=== PATIENT | female | born 1980 | race Caucasian/White ===

== ENCOUNTER 2017-11-08 13:46 | Emergency (ER) | payer OTHER ==
[2017-11-08] MEDS ORDERED: SODIUM CHLORIDE 0.9% 1,000 ML IV ONE (14:15)
[2017-11-08] MEDS ORDERED: ONDANSETRON 4 MG/2 ML VIAL IVP STA (14:15)
--- NOTE | 2017-11-08 14:18 | ED Physician Documentation ---
PD HPI NVD - Stated complaint Stated Complaint: VOMITING/DIARE/SWEATING - Chief complaint Chief Complaint: Abd Pain - History obtained from History obtained from: Patient - History of Present Illness Timing - onset: Enter time (0600), Today Timing - duration: Hours Timing - details: Abrupt onset, Still present Associated symptoms: Abdominal pain, Dizzy, Near syncope / syncope, Loss of appetite Contributing factors: No: Sick contact, Bad food Improved by: Laying still Worsened by: Moving, Breathing, Position, Palpation Similar symptoms before: Has not had sx before Recently seen: Clinic (routine visit several weeks ago.) - Additonal information Additional information: 37-year-old female awoke this morning with diarrhea and vomiting as well as epigastric abdominal pain. She has had persistence of her symptoms and feels quite ill. She states this is different than what she has had previously with migraine headache. Review of Systems Constitutional: reports: Chills. denies: Fever Eyes: denies: Decreased vision Ears: denies: Ear pain Nose: reports: Congestion Throat: reports: Sore throat Cardiac: denies: Chest pain / pressure, Palpitations Respiratory: reports: Cough. denies: Dyspnea GI: reports: Nausea, Vomiting, Diarrhea : denies: Dysuria, Frequency PD PAST MEDICAL HISTORY - Past Medical History Cardiovascular: Hypertension Psych: Depression Musculoskeletal: Chronic back pain - Past Surgical History Past Surgical History: No - Present Medications Home Medications: Ambulatory Orders Medication Instructions Recorded Confirmed Escitalopram Oxalate [Lexapro] 20 mg PO DAILY 03/30/14 07/28/14 Lisinopril 5 mg PO DAILY 03/30/14 07/28/14 Hydrocodone/Acetaminophen 1 each PO 11/08/17 [Hydrocodone-Acetamin 5-325 mg] Methocarbamol [Robaxin-750] 1,500 mg PO 11/08/17 Ondansetron [Zuplenz] 8 mg PO 11/08/17 Promethazine [Phenergan] 25 - 50 mg PO Q6H PRN #10 tab 11/08/17 buPROPion [Wellbutrin Sr] mg PO BID 11/08/17 - Allergies Allergies/Adverse Reactions: Allergies Allergy/AdvReac Type Severity Reaction Status Date / Time No Known Drug Allergies Allergy Verified 11/08/17 13:52 - Social History Does the pt smoke?: Yes Smoking Status: Current every day smoker Does the pt drink ETOH?: Yes Does the pt have substance abuse?: No - POLST Patient has POLST: No PD ED PE NORMAL - Vitals Vital signs reviewed: Yes (hypertensive ) - General General: Alert and oriented X 3, Well developed/nourished, Other (appears to be in pain ) - HEENT HEENT: Atraumatic, PERRL, EOMI, Other (right TM is inflamed the left is clear the pharynx is with swelling and erythema more to the right than the left. ) - Neck Neck: Supple, no meningeal sign, No bony TTP - Cardiac Cardiac: RRR, No murmur - Respiratory Respiratory: No respiratory distress, Clear bilaterally - Abdomen Abdomen: Soft, Other (epigastric tenderness is mild tenderness is referred from GB with palpation. ) - Back Back: No CVA TTP, No spinal TTP - Derm Derm: Normal color, Warm and dry, No rash - Extremities Extremities: No deformity - Neuro Neuro: No motor deficit, No sensory deficit Eye Opening: Spontaneous Motor: Obeys Commands Verbal: Oriented GCS Score: 15 - Psych Psych: Normal mood, Other (affect is flat) Results - Vitals Vitals: Vital Signs - 24 hr 11/08/17 11/08/17 11/08/17 13:49 14:53 15:25 Temperature 36.8 C Heart Rate 86 87 80 Respiratory 22 20 18 Rate Blood Pressure 149/114 H 147/96 H 138/82 H O2 Saturation 98 100 100 Oxygen O2 Source Room air - Labs Labs: Laboratory Tests 11/08/17 11/08/17 11/08/17 14:19 14:19 14:19 WBC 14.2 H RBC 5.31 Hgb 16.1 H Hct 46.9 MCV 88.5 MCH 30.4 MCHC 34.4 RDW 12.6 Plt Count 425 MPV 6.5 L Neut # 12.3 H Lymph # 1.3 L [place] # 0.4 Eos # 0.0 Baso # 0.1 Absolute Nucleated RBC 0.01 Nucleated RBC % 0.0 Sodium 137 Potassium 3.6 Chloride 101 Carbon Dioxide 22 Anion Gap 14.0 H BUN 14 Creatinine 0.9 Estimated GFR (MDRD) 71 L Glucose 139 H Calcium 10.0 Total Bilirubin 0.9 AST 27 ALT 18 Alkaline Phosphatase 65 Troponin I < 0.04 Total Protein 8.8 H Albumin 4.8 Globulin 4.0 Albumin/Globulin Ratio 1.2 Lipase 24 Urine Color Urine Clarity Urine pH Ur Specific [place] Urine Protein Urine Glucose (UA) Urine Ketones Urine Occult Blood Urine Nitrite Urine Bilirubin Urine Urobilinogen Ur Leukocyte Esterase Urine RBC Urine WBC Ur Squamous Epith Cells Urine Bacteria Urine Casts Ur Microscopic Review Urine Culture Comments Urine HCG, Qual 11/08/17 14:19 WBC RBC Hgb Hct MCV MCH MCHC RDW Plt Count MPV Neut # Lymph # [place] # Eos # Baso # Absolute Nucleated RBC Nucleated RBC % Sodium Potassium Chloride Carbon Dioxide Anion Gap BUN Creatinine Estimated GFR (MDRD) Glucose Calcium Total Bilirubin AST ALT Alkaline Phosphatase Troponin I Total Protein Albumin Globulin Albumin/Globulin Ratio Lipase Urine Color YELLOW Urine Clarity CLEAR Urine pH 8.5 H Ur Specific [place] 1.015 Urine Protein 100 H Urine Glucose (UA) NEGATIVE Urine Ketones 15 H Urine Occult Blood TRACE-INTA Urine Nitrite NEGATIVE Urine Bilirubin NEGATIVE Urine Urobilinogen 0.2 (NORMAL) Ur Leukocyte Esterase NEGATIVE Urine RBC 0-5 Urine WBC 0-3 Ur Squamous Epith Cells RARE Squamous Urine Bacteria None Seen Urine Casts 0-2 Hyaline Casts Ur Microscopic Review INDICATED Urine Culture Comments NOT INDICATED Urine HCG, Qual NEGATIVE Procedures - Bedside sono Bedside sono by EMP: With use of bedside ultrasound the gallbladder is imaged it is without obvious stone the gallbladder wall is not thickened and there is no port pericholecystic fluid. It is sonographically tender and has referred pain to the epigastrium. PD MEDICAL DECISION MAKING - ED course Complexity details: reviewed old records, reviewed results, re-evaluated patient , considered differential, d/w patient, d/w family ED course: 37 y/o female with acute vomiting and diarrhea this morning is in pain with epigastric pain worse with inspiration. She is found to be dehydrated and hydration is begun with saline and she is administered IV zofran without much relief. She does not get relief of the pain with a GI cocktail. She does get relief of nausea and pain with fentanyl and phenergan. Departure - Departure Disposition: 01 Home, Self Care Clinical Impression: Dehydration, Gastroenteritis Condition: Stable Instructions: ED Dehydration, ED Gastroenteritis Non Infec Follow-Up: Beckie Walker PA [Primary Care Provider] - Prescriptions: Promethazine [Phenergan] 25 - 50 mg PO Q6H PRN #10 tab PRN Reason: Nausea / Vomiting
[2017-11-08 14:34] LABS: BASOPHILS # (AUTO) 0.1 10^3/uL (0.0-0.1); BASOPHILS % (AUTO) 0.6 %; EOSINOPHILS % (AUTO) 0.2 %; HGB - HEMOGLOBIN 16.1 g/dL (12.0-16.0); LYMPHOCYTES # (AUTO) 1.3 10^3/uL (1.5-3.5); LYMPHOCYTES % (AUTO) 9.4 %; MEAN CORPUSCULAR HEMOGLOBIN 30.4 pg (27.0-31.0); MEAN CORPUSCULAR HGB CONC 34.4 g/dL (32.0-36.0); MEAN CORPUSCULAR VOLUME 88.5 fL (81.0-99.0); MEAN PLATELET VOLUME 6.5 fL (7.9-10.8); MONOCYTES # (AUTO) 0.4 10^3/uL (0.0-1.0); MONOCYTES % (AUTO) 3.1 %; NEUTROPHILS # (AUTO) 12.3 10^3/uL (1.5-6.6); NEUTROPHILS % (AUTO) 86.7 %; PLT - PLATELET COUNT 425 10^3/uL (130-450); RED BLOOD COUNT 5.31 10^6/uL (4.20-5.40); RED CELL DISTRIBUTION WIDTH 12.6 % (12.0-15.0); WHITE BLOOD COUNT 14.2 x10^3/uL (4.8-10.8)
[2017-11-08] MEDS ORDERED: LIDOCAINE VISCOUS 2% 15 ML UDC MM STA (14:42)
[2017-11-08] MEDS ORDERED: MAG HYDROX/AL HYDROX/SIMETH 30 ML UDC PO STA (14:42)
[2017-11-08 14:45] LABS: BILIRUBIN,URINE NEGATIVE (NEGATIVE); GLUCOSE, URINE (UA) NEGATIVE (NEGATIVE); KETONES,URINE (UA) 15 mg/dL (NEGATIVE); LEUKOCYTE ESTERASE, URINE NEGATIVE (NEGATIVE); NITRITE,URINE NEGATIVE (NEGATIVE); OCCULT BLOOD,URINE TRACE-INTA (NEGATIVE); PH,URINE 8.5 PH (5.0-7.5); PROTEIN,URINE 100 mg/dL (NEGATIVE); UROBILINOGEN,URINE 0.2 (NORMAL) E.U./dL (NORMAL)
[2017-11-08 14:46] LABS: ALBUMIN 4.8 g/dL (3.2-5.5); ALBUMIN/GLOBULIN RATIO 1.2 (1.0-2.2); BILIRUBIN,TOTAL 0.9 mg/dL (0.2-1.0); CREATININE 0.9 mg/dL (0.4-1.0); TOTAL PROTEIN 8.8 g/dL (6.7-8.2)
[2017-11-08 14:47] LABS: CLARITY,URINE CLEAR (CLEAR); HCG UR QUAL NEGATIVE
[2017-11-08] MEDS ORDERED: fentaNYL 100 MCG/2 ML VIAL IVP STA (14:54)
[2017-11-08] MEDS ORDERED: PROMETHAZINE INJ 25 MG in SODIUM CHLORIDE 0.9% 50 ML IV STA (14:54)
[2017-11-08 15:00] LABS: BACTERIA,URINE None Seen /HPF (None Seen); CASTS, URINE 0-2 Hyaline Casts /LPF; RBC,URINE 0-5 /HPF (0-5); SQUAMOUS EPITHELIAL CELL,UR RARE Squamous (<= Few)
[2017-11-08 15:35] VITALS: BP 151/103
== END 2017-11-08 16:59 | disposition home or self-care (01) ==
LOC: ED 13:46
DX: E86.0 Dehydration (principal); K52.9 Noninfective gastroenteritis and colitis, unspecified; I10 Essential (primary) hypertension; F17.200 Nicotine dependence, unspecified, uncomplicated
CPT/HCPCS: 36415; 80053; 81001; 81025; 83690; 84484; 85025; 96374; 96375; 99283; 99284; A9270; J7040; 81003; 87086

== ENCOUNTER 2017-11-10 10:28 | Emergency (ER) | payer OTHER ==
[2017-11-10] MEDS ORDERED: ONDANSETRON ODT 4 MG TABLET TL STA (11:00)
[2017-11-10 11:12] LABS: BASOPHILS # (AUTO) 0.1 10^3/uL (0.0-0.1); BASOPHILS % (AUTO) 0.6 %; EOSINOPHILS % (AUTO) 0.1 %; HGB - HEMOGLOBIN 16.3 g/dL (12.0-16.0); LYMPHOCYTES # (AUTO) 2.2 10^3/uL (1.5-3.5); MEAN CORPUSCULAR HEMOGLOBIN 30.7 pg (27.0-31.0); MEAN CORPUSCULAR HGB CONC 34.5 g/dL (32.0-36.0); MEAN CORPUSCULAR VOLUME 89.1 fL (81.0-99.0); MEAN PLATELET VOLUME 6.2 fL (7.9-10.8); MONOCYTES # (AUTO) 0.5 10^3/uL (0.0-1.0); MONOCYTES % (AUTO) 3.7 %; NEUTROPHILS % (AUTO) 80.6 %; PLT - PLATELET COUNT 443 10^3/uL (130-450); RED BLOOD COUNT 5.32 10^6/uL (4.20-5.40); WHITE BLOOD COUNT 14.9 x10^3/uL (4.8-10.8)
[2017-11-10 11:24] LABS: ALBUMIN/GLOBULIN RATIO 1.4 (1.0-2.2); BILIRUBIN,TOTAL 1.3 mg/dL (0.2-1.0); CALCIUM 9.6 mg/dL (8.5-10.3); CREATININE 0.9 mg/dL (0.4-1.0); TOTAL PROTEIN 8.6 g/dL (6.7-8.2)
--- NOTE | 2017-11-10 12:16 | ED Physician Documentation ---
PD HPI ABD PAIN - Stated complaint Stated Complaint: ABD PX,VOMITTING - Chief complaint Chief Complaint: Abd Pain - History obtained from History obtained from: Patient - History of Present Illness Timing - onset: How many days ago (several) Timing - duration: Days (several) Timing - details: Abrupt onset (initially with nausea, vomiting and some diarrhea. Not diarrhea still, but upper stomach still hurting with nausea/ vomiting despite meds Phenergan.) Quality: Cramping, Aching, Pain Location: Epigastric Radiation: Chest, Upper back. No: Lower back Improved by: No: Eating, Vomiting Worsened by: Eating, Breathing, Palpation Associated symptoms: Nausea, Vomiting, Diarrhea. No: Fever, Hematemesis, Constipation, Melena, Dysuria, Near syncope / syncope Similar symptoms before: Has not had sx before Recently seen: Emergency Dept (2 days ago with presume GE with normal bedside US and labs showing just elevated WBC. Rx Phenergan.) Review of Systems Constitutional: denies: Fever, Chills Nose: denies: Rhinorrhea / runny nose, Congestion Throat: denies: Sore throat Cardiac: reports: Chest pain / pressure (pain goes to lower sternal area). denies: Palpitations Respiratory: denies: Dyspnea, Cough GI: reports: Abdominal Pain, Nausea, Vomiting, Diarrhea. denies: Abdominal Swelling : denies: Dysuria, Frequency Neurologic: reports: Generalized weakness. denies: Focal weakness, Numbness, Near syncope, Altered mental status PD PAST MEDICAL HISTORY - Past Medical History Cardiovascular: Hypertension Psych: Depression Musculoskeletal: Chronic back pain - Past Surgical History Past Surgical History: No - Present Medications Home Medications: Ambulatory Orders Medication Instructions Recorded Confirmed Escitalopram Oxalate [Lexapro] 20 mg PO DAILY 03/30/14 07/28/14 Lisinopril 5 mg PO DAILY 03/30/14 07/28/14 Hydrocodone/Acetaminophen 1 each PO 11/08/17 [Hydrocodone-Acetamin 5-325 mg] Methocarbamol [Robaxin-750] 1,500 mg PO 11/08/17 Ondansetron [Zuplenz] 8 mg PO 11/08/17 Promethazine [Phenergan] 25 - 50 mg PO Q6H PRN #10 tab 11/08/17 buPROPion [Wellbutrin Sr] mg PO BID 11/08/17 Famotidine [Pepcid] 20 mg PO ONCE #30 tablet 11/10/17 HYDROcod/ACETAM 5/325 [[place] 5/325] 1 tab PO Q6H PRN #15 tablet 11/10/17 Lidocaine Viscous 2% [Xylocaine 5 ml PO Q4H PRN #1 bottle 11/10/17 Viscous 2%] Ondansetron Odt [Zofran] 4 mg TL Q6H PRN #15 tablet 11/10/17 - Allergies Allergies/Adverse Reactions: Allergies Allergy/AdvReac Type Severity Reaction Status Date / Time No Known Drug Allergies Allergy Verified 11/10/17 10:56 - Social History Does the pt smoke?: Yes Smoking Status: Current every day smoker Does the pt drink ETOH?: Yes Does the pt have substance abuse?: No - POLST Patient has POLST: No PD ED PE NORMAL - Vitals Vital signs reviewed: Yes - General General: Alert and oriented X 3, Well developed/nourished, Other (appears uncomfortable) - HEENT HEENT: Ears normal, Pharynx benign - Neck Neck: Supple, no meningeal sign, No adenopathy - Cardiac Cardiac: RRR, No murmur - Respiratory Respiratory: Clear bilaterally - Abdomen Abdomen: Soft, Non distended, No organomegaly, Other (tender epigastric to RUQ with guarding) - Female Female : Deferred - Rectal Rectal: Deferred - Back Back: No CVA TTP - Derm Derm: Normal color, Warm and dry - Extremities Extremities: No tenderness to palpate, Normal ROM s pain, No edema, No calf tenderness / cord - Neuro Neuro: Alert and oriented X 3, No motor deficit, Normal speech Results - Vitals Vitals: Vital Signs - 24 hr 11/10/17 11/10/17 11/10/17 10:51 14:11 15:42 Temperature 35.9 C L 37.7 C H 36.9 C Heart Rate 80 92 77 Respiratory 15 18 18 Rate Blood Pressure 159/101 H 157/107 H 143/74 H O2 Saturation 98 98 98 Oxygen O2 Source Room air - Labs Labs: Laboratory Tests 11/10/17 11/10/17 11/10/17 11:03 11:03 12:00 WBC 14.9 H RBC 5.32 Hgb 16.3 H Hct 47.4 H MCV 89.1 MCH 30.7 MCHC 34.5 RDW 13.0 Plt Count 443 MPV 6.2 L Neut # 12.0 H Lymph # 2.2 [place] # 0.5 Eos # 0.0 Baso # 0.1 Absolute Nucleated RBC 0.00 Nucleated RBC % 0.0 Sodium 136 Potassium 3.4 L Chloride 99 L Carbon Dioxide 24 Anion Gap 13.0 BUN 16 Creatinine 0.9 Estimated GFR (MDRD) 71 L Glucose 135 H Calcium 9.6 Total Bilirubin 1.3 H AST 27 ALT 21 Alkaline Phosphatase 58 Total Protein 8.6 H Albumin 5.0 Globulin 3.6 Albumin/Globulin Ratio 1.4 Lipase 25 Urine Color DARK YELLOW Urine Clarity CLEAR Urine pH 5.5 Ur Specific [place] >=1.030 H Urine Protein >=300 H Urine Glucose (UA) NEGATIVE Urine Ketones 40 H Urine Occult Blood MODERATE H Urine Nitrite NEGATIVE Urine Bilirubin NEGATIVE Urine Urobilinogen 1 (NORMAL) Ur Leukocyte Esterase NEGATIVE Urine RBC 6-10 H Urine WBC 0-3 Ur Squamous Epith Cells FEW Squamous Amorphous Sediment Few Urine Bacteria Moderate H Urine Mucus Moderate Strands Ur Microscopic Review INDICATED Urine Culture Comments INDICATED Urine HCG, Qual 11/10/17 12:15 WBC RBC Hgb Hct MCV MCH MCHC RDW Plt Count MPV Neut # Lymph # [place] # Eos # Baso # Absolute Nucleated RBC Nucleated RBC % Sodium Potassium Chloride Carbon Dioxide Anion Gap BUN Creatinine Estimated GFR (MDRD) Glucose Calcium Total Bilirubin AST ALT Alkaline Phosphatase Total Protein Albumin Globulin Albumin/Globulin Ratio Lipase Urine Color Urine Clarity Urine pH Ur Specific [place] >=1.030 H Urine Protein Urine Glucose (UA) Urine Ketones Urine Occult Blood Urine Nitrite Urine Bilirubin Urine Urobilinogen Ur Leukocyte Esterase Urine RBC Urine WBC Ur Squamous Epith Cells Amorphous Sediment Urine Bacteria Urine Mucus Ur Microscopic Review Urine Culture Comments Urine HCG, Qual NEGATIVE - Rads (name of study) RUQ US Radiology: Prelim report reviewed (fatty liver; no acute process) PD MEDICAL DECISION MAKING - ED course Complexity details: reviewed results (still good labs regarding liver/pancreas. WBC elevated still at 14K. RUQ US formal study is good. Shared decision to not do CT scan as presume gastric. ), considered differential, d/w patient Departure - Departure Disposition: 01 Home, Self Care Clinical Impression: Abdominal pain Qualifiers: Abdominal location: epigastric Qualified Code(s): R10.13 - Epigastric pain Vomiting Qualifiers: Vomiting type: unspecified Vomiting Intractability: non-intractable Nausea presence: with nausea Qualified Code(s): R11.2 - Nausea with vomiting, unspecified Gastritis Qualifiers: Gastritis type: unspecified gastritis Chronicity: acute Gastritis bleeding: without bleeding Qualified Code(s): K29.00 - Acute gastritis without bleeding Condition: Stable Record reviewed to determine appropriate education?: Yes Instructions: ED Gastritis Follow-Up: Beckie Walker PA [Primary Care Provider] - Prescriptions: Famotidine [Pepcid] 20 mg PO ONCE #30 tablet HYDROcod/ACETAM 5/325 [[place] 5/325] 1 tab PO Q6H PRN #15 tablet PRN Reason: Pain Lidocaine Viscous 2% [Xylocaine Viscous 2%] 5 ml PO Q4H PRN #1 bottle PRN Reason: Pain Ondansetron Odt [Zofran] 4 mg TL Q6H PRN #15 tablet PRN Reason: Nausea / Vomiting Comments: Small frequent fluids. Ondansetron dissolving tablet if needed for nausea. He can use promethazine previously prescribed as well for nausea. Tylenol or hydrocodone if needed for pain. He can use antacids such as Mylanta or Maalox along with some lidocaine if needed for stomach pain. 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 Recheck if not improving over the next 2 or 3 days. Discharge Date/Time: 11/10/17 16:12
[2017-11-10 12:29] LABS: GLUCOSE, URINE (UA) NEGATIVE (NEGATIVE); KETONES,URINE (UA) 40 mg/dL (NEGATIVE); LEUKOCYTE ESTERASE, URINE NEGATIVE (NEGATIVE); NITRITE,URINE NEGATIVE (NEGATIVE); OCCULT BLOOD,URINE MODERATE (NEGATIVE); PH,URINE 5.5 PH (5.0-7.5); PROTEIN,URINE >=300 mg/dL (NEGATIVE); UROBILINOGEN,URINE 1 (NORMAL) E.U./dL (NORMAL)
[2017-11-10] MEDS ORDERED: SODIUM CHLORIDE 0.9% 1,000 ML IV ONE ×2 (12:34→12:35)
[2017-11-10] MEDS ORDERED: MAG HYDROX/AL HYDROX/SIMETH 30 ML UDC PO STA (12:34)
[2017-11-10] MEDS ORDERED: LIDOCAINE VISCOUS 2% 15 ML UDC MM STA (12:34)
[2017-11-10] MEDS ORDERED: ONDANSETRON 4 MG/2 ML VIAL IVP STA (12:34)
[2017-11-10] MEDS ORDERED: MORPHINE 10 MG/ML VIAL IVP STA ×2 (12:34→13:10)
[2017-11-10] MEDS ORDERED: FAMOTIDINE 20 MG/50 ML 50 ML IV ONE (12:34)
[2017-11-10 12:35] LABS: BILIRUBIN,URINE NEGATIVE (NEGATIVE); CLARITY,URINE CLEAR (CLEAR); ICTOTEST,URINE NEGATIVE
[2017-11-10 12:36] LABS: HCG UR QUAL NEGATIVE
[2017-11-10 12:47] LABS: AMORPHOUS SEDIMENT,UR Few /LPF; BACTERIA,URINE Moderate /HPF (None Seen); MUCUS,URINE Moderate Strands; SQUAMOUS EPITHELIAL CELL,UR FEW Squamous (<= Few)
[2017-11-10] MEDS ORDERED: METOCLOPRAMIDE 10 MG/2 ML VIAL IVP STA (13:09)
[2017-11-10] MEDS ORDERED: ACETAMINOPHEN 1,000 MG/100 ML 100 ML IV STA (13:10)
--- NOTE | 2017-11-10 14:16 | Ultrasound Report ---
RIGHT UPPER QUADRANT ULTRASOUND: 11/10/2017 CLINICAL INDICATION: Pain. TECHNIQUE: Real-time scanning was performed with claims customer service representative static images obtained. FINDINGS: The liver measures 16.2 cm. Hepatic echogenicity is increased, compatible with fatty infiltration. No focal parenchymal lesion or intrahepatic biliary dilatation is present. The common bile duct measures 3 mm. The gallbladder is normal. The right kidney measures 12.7 cm, and demonstrates no hydronephrosis. No free fluid is present. IMPRESSION: FATTY INFILTRATION OF THE LIVER. NO EVIDENCE OF CHOLELITHIASIS OR BILIARY OBSTRUCTION. TD: 11/10/2017 13:51
[2017-11-10 15:42] VITALS: BP 143/74
== END 2017-11-10 16:12 | disposition home or self-care (01) ==
LOC: ED 10:28
DX: K29.00 Acute gastritis without bleeding (principal); R10.13 Epigastric pain; R11.2 Nausea with vomiting, unspecified; I10 Essential (primary) hypertension; F17.200 Nicotine dependence, unspecified, uncomplicated
CPT/HCPCS: 36415; 76705; 80053; 81001; 81025; 83690; 85025; 87086; 93005; 96361; 96365; 96366; 96368; 96375; 96376; 99283; A9270; J0131; J2765; Q0162; 81003

== ENCOUNTER 2019-09-20 15:22 | Emergency (ER) | payer OTHER ==
--- NOTE | 2019-09-20 15:31 | ED Physician Documentation ---
PD HPI NVD - Stated complaint Stated Complaint: VOMITING 24HRS - Chief complaint Chief Complaint: Abd Pain - History obtained from History obtained from: Patient - History of Present Illness Timing - onset: Yesterday Timing - details: Abrupt onset Associated symptoms: Abdominal pain, Dizzy. No: Fever, Near syncope / syncope, Dysuria, Vaginal bleeding Contributing factors: No: Sick contact, Bad food Similar symptoms before: Work up / diagnostics, Treatment Recently seen: Not recently seen - Additonal information Additional information: This is a 39-year-old woman who presents with complaints that she started vomiting yesterday morning had 1 loose diarrhea continued vomiting since that time despite taking Zofran the last tablet around 3 AM and Phenergan the last tablet around 11 AM. She ate at home the day before yesterday everyone else in the house ate the same thing and no one else got sick. She had a low-grade temp at 99 degrees for the night last night. She complains of abdominal pain in the epigastric area denies any prior abdominal surgeries but does not know if she is ever had a gallbladder ultrasound. Last emesis was in route here. She is felt dizzy but has not passed out. Denies sore throat stuffy nose or coughing. She denies stating that she does not have menstrual periods because of PCOS. Review of Systems Constitutional: denies: Fever Ears: denies: Ear pain Nose: denies: Rhinorrhea / runny nose, Congestion Throat: denies: Sore throat Respiratory: denies: Cough GI: reports: Abdominal Pain, Nausea, Vomiting, Diarrhea : denies: Dysuria, Now EGA Skin: denies: Rash Musculoskeletal: denies: Back pain Neurologic: reports: Other ([place] dizzy) PD PAST MEDICAL HISTORY - Past Medical History Cardiovascular: Hypertension Psych: Depression Musculoskeletal: Chronic back pain - Past Surgical History Past Surgical History: No - Present Medications Home Medications: Ambulatory Orders Medication Instructions Recorded Confirmed Escitalopram Oxalate [Lexapro] 20 mg PO DAILY 03/30/14 07/28/14 lisinopriL [Lisinopril] 5 mg PO DAILY 03/30/14 07/28/14 Hydrocodone/Acetaminophen 1 each PO 11/08/17 [Hydrocodone-Acetamin 5-325 mg] Methocarbamol [Robaxin-750] 1,500 mg PO 11/08/17 Ondansetron [Zuplenz] 8 mg PO 11/08/17 Promethazine [Phenergan] 25 - 50 mg PO Q6H PRN #10 tab 11/08/17 buPROPion [Wellbutrin Sr] mg PO BID 11/08/17 Famotidine [Pepcid] 20 mg PO ONCE #30 tablet 11/10/17 HYDROcod/ACETAM 5/325 [[place] 5/325] 1 tab PO Q6H PRN #15 tablet 11/10/17 Lidocaine Viscous 2% [Xylocaine 5 ml PO Q4H PRN #1 bottle 11/10/17 Viscous 2%] Ondansetron Odt [Zofran] 4 mg TL Q6H PRN #15 tablet 11/10/17 Cephalexin [Keflex] 500 mg PO Q6H #40 capsule 09/20/19 - Allergies Allergies/Adverse Reactions: Allergies Allergy/AdvReac Type Severity Reaction Status Date / Time No Known Drug Allergies Allergy Verified 11/10/17 10:56 - Social History Does the pt smoke?: Yes Smoking Status: Current every day smoker Does the pt drink ETOH?: Yes Does the pt have substance abuse?: No - POLST Patient has POLST: No PD ED PE NORMAL - Vitals Vital signs reviewed: Yes - General General: Alert and oriented X 3, No acute distress, Well developed/nourished, Other (Obese 39-year-old woman who is not in acute distress.) - HEENT HEENT: Atraumatic, PERRL, Other (Mucous membranes are slightly dry. There is no scleral icterus.) - Neck Neck: No adenopathy, Thyroid normal - Cardiac Cardiac: RRR, No murmur, Strong equal pulses - Respiratory Respiratory: No respiratory distress, Clear bilaterally - Abdomen Abdomen: Normal bowel sounds, Soft, Other (Exam limited by body habitus. She has some guarding in the epigastric area and upper quadrants bilaterally.) - Derm Derm: Normal color, Warm and dry, No rash - Extremities Extremities: No edema - Neuro Neuro: Alert and oriented X 3, No motor deficit, No sensory deficit, Normal speech - Psych Psych: Normal mood Results - Vitals Vitals: Vital Signs - 24 hr 09/20/19 15:24 Temperature 37 C Heart Rate 105 H Respiratory 18 Rate Blood Pressure 152/104 H O2 Saturation 97 Oxygen O2 Source Room air - Labs Labs: Laboratory Tests 09/20/19 09/20/19 09/20/19 15:45 15:45 15:45 WBC 20.2 H RBC 5.12 Hgb 16.3 H Hct 45.3 MCV 88.5 MCH 31.8 H MCHC 36.0 RDW 12.9 Plt Count 457 H MPV 8.3 Neut # (Auto) Not Reportable Lymph # (Auto) Not Reportable [place] # (Auto) Not Reportable Eos # (Auto) Not Reportable Baso # (Auto) Not Reportable Absolute Nucleated RBC Not Reportable Total Counted 100 Band Neuts % (Manual) 0 Abnorm Lymph % (Manual) 0 Nucleated RBC % Not Reportable Neutrophils # (Manual) 18.2 H Lymphocytes # (Manual) 1.4 L Monocytes # (Manual) 0.6 Eosinophils # (Manual) 0.0 Basophils # (Manual) 0.0 Differential Comment MANUAL DIFFERENTIAL Manual Slide Review Indicated WBC Morphology NORMAL APPEARANCE Platelet Estimate INCREASED (>450,000) Platelet Morphology NORMAL APPEARANCE RBC Morph Micro Appear NORMAL APPEARANCE Sodium 139 Potassium 3.2 L Chloride 101 Carbon Dioxide 25 Anion Gap 13.0 BUN 16 Creatinine 0.8 Estimated GFR (MDRD) 80 L Glucose 153 H Calcium 9.8 Total Bilirubin 0.7 AST 40 ALT 21 Alkaline Phosphatase 58 Total Protein 8.6 H Albumin 4.8 Globulin 3.8 Albumin/Globulin Ratio 1.3 Lipase 25 Serum HCG, Qual NEGATIVE Urine Color Urine Clarity Urine pH Ur Specific [place] Urine Protein Urine Glucose (UA) Urine Ketones Urine Occult Blood Urine Nitrite Urine Bilirubin Urine Urobilinogen Ur Leukocyte Esterase Urine RBC Urine WBC Ur Epithelial Cells Ur Squamous Epith Cells Urine Bacteria Ur Microscopic Review Urine Culture Comments 09/20/19 16:45 WBC RBC Hgb Hct MCV MCH MCHC RDW Plt Count MPV Neut # (Auto) Lymph # (Auto) [place] # (Auto) Eos # (Auto) Baso # (Auto) Absolute Nucleated RBC Total Counted Band Neuts % (Manual) Abnorm Lymph % (Manual) Nucleated RBC % Neutrophils # (Manual) Lymphocytes # (Manual) Monocytes # (Manual) Eosinophils # (Manual) Basophils # (Manual) Differential Comment Manual Slide Review WBC Morphology Platelet Estimate Platelet Morphology RBC Morph Micro Appear Sodium Potassium Chloride Carbon Dioxide Anion Gap BUN Creatinine Estimated GFR (MDRD) Glucose Calcium Total Bilirubin AST ALT Alkaline Phosphatase Total Protein Albumin Globulin Albumin/Globulin Ratio Lipase Serum HCG, Qual Urine Color YELLOW Urine Clarity CLEAR Urine pH 7.0 Ur Specific [place] 1.025 Urine Protein >=300 H Urine Glucose (UA) NEGATIVE Urine Ketones NEGATIVE Urine Occult Blood LARGE H Urine Nitrite NEGATIVE Urine Bilirubin NEGATIVE Urine Urobilinogen 0.2 (NORMAL) Ur Leukocyte Esterase TRACE H Urine RBC 0-5 Urine WBC 11-25 H Ur Epithelial Cells FEW Transitional Ur Squamous Epith Cells NONE SEEN Urine Bacteria None Seen Ur Microscopic Review INDICATED Urine Culture Comments INDICATED PD MEDICAL DECISION MAKING - ED course Complexity details: reviewed results, re-evaluated patient, d/w patient ED course: The patient had an IV started. She was given a liter of fluids and then second bag at 150 cc/h. She was initially medicated with Zofran which seemed to help the pain and nausea initially but then it started coming back so she was given Phenergan 25 mg IV. She continued to complain of pain to the nursing staff and was given Toradol 30 mg IV. Her white blood cell count was over 20,000. Potassium was slightly low at 3.3 but normal BUN and creatinine and liver enzymes are normal. Normal lipase. Urinalysis had white blood cells and no squamous epithelial cells. Culture is pending. CT scan of her abdomen did not show any acute intra-abdominal process. Results were discussed with her. She was given oral potassium and a gram of Rocephin IV. When I went in the room to discuss results she was sleeping soundly. Said that her pain was much better was down to a 4 out of 10. Plan for discharge home on outpatient antibiotics and follow-up with her primary care provider after finishing the antibiotics to recheck the urine. Return if her symptoms are worsening. She has plenty of Zofran and Phenergan at home and stated that she did not need a refill. Departure - Departure Disposition: Home, Self Care Clinical Impression: Abdominal pain Qualifiers: Abdominal location: unspecified location Qualified Code(s): R10.9 - Unspecified abdominal pain UTI (urinary tract infection) Qualifiers: Urinary tract infection type: site unspecified Hematuria presence: without hematuria Qualified Code(s): N39.0 - Urinary tract infection, site not specified Condition: Good Instructions: ED Abdominal Pain Unkn Cause, ED Diet Vomiting Diarrhea, ED UTI Cystitis Female Follow-Up: Beckie Walker PA [Primary Care Provider] - Prescriptions: Cephalexin [Keflex] 500 mg PO Q6H #40 capsule Comments: Take the antibiotic as prescribed 4 times a day. I would highly recommend you take this with probioticsWhich can be purchased [id number] at the pharmacy. Yogurt also has some probiotics but I would recommend a capsule of them as well. Drink lots of water to keep yourself hydrated. You have Zofran or Phenergan at home if you need for nausea or vomiting. Recheck the urine with your primary care provider for recheck after you finish the antibiotics. Return to the emergency department if you have increasing pain, you are vomiting and cannot keep anything down, you develop fever or other problems arise.
[2019-09-20] MEDS ORDERED: SODIUM CHLORIDE 0.9% 1,000 ML IV ONE ×2 (15:46→16:30)
[2019-09-20] MEDS ORDERED: ONDANSETRON 4 MG/2 ML VIAL IVP STA (15:46)
[2019-09-20 15:56] LABS: BASOPHILS % (AUTO) 0.2 %; EOSINOPHILS % (AUTO) 1.1 %; HGB - HEMOGLOBIN 16.3 g/dL (12.0-16.0); LYMPHOCYTES % (AUTO) 10.7 %; MEAN CORPUSCULAR HEMOGLOBIN 31.8 pg (27.0-31.0); MEAN CORPUSCULAR VOLUME 88.5 fL (81.0-99.0); MEAN PLATELET VOLUME 8.3 fL (7.9-10.8); MONOCYTES % (AUTO) 4.8 %; NEUTROPHILS % (AUTO) 82.1 %; PLT - PLATELET COUNT 457 10^3/uL (130-450); RED BLOOD COUNT 5.12 10^6/uL (4.20-5.40); RED CELL DISTRIBUTION WIDTH 12.9 % (12.0-15.0); WHITE BLOOD COUNT 20.2 x10^3/uL (4.8-10.8)
[2019-09-20 16:02] LABS: ABNORMAL LYMPHS % (MANUAL) 0 %; BAND NEUTROPHILS % (MANUAL) 0 %
[2019-09-20 16:08] LABS: ALBUMIN 4.8 g/dL (3.2-5.5); ALBUMIN/GLOBULIN RATIO 1.3 (1.0-2.2); BILIRUBIN,TOTAL 0.7 mg/dL (0.2-1.0); CALCIUM 9.8 mg/dL (8.5-10.3); CREATININE 0.8 mg/dL (0.4-1.0); TOTAL PROTEIN 8.6 g/dL (6.7-8.2)
[2019-09-20 16:12] LABS: LYMPHOCYTES # (MANUAL) 1.4 10^3/uL (1.5-3.5); LYMPHOCYTES % (MANUAL) 7 %; MONOCYTES # (MANUAL) 0.6 10^3/uL (0.0-1.0); PLATELET ESTIMATE, MANUAL INCREASED (>450,000) (NORMAL); PLATELET MORPHOLOGY NORMAL APPEARANCE (NORMAL); RBC MORPHOLOGY (MULTIPLE) NORMAL APPEARANCE (NORMAL)
[2019-09-20 16:13] LABS: DIFFERENTIAL COMMENT MANUAL DIFFERENTIAL
[2019-09-20] MEDS ORDERED: PROMETHAZINE INJ 25 MG in SODIUM CHLORIDE 0.9% 50 ML IV STA (16:30)
[2019-09-20] MEDS ORDERED: IOVERSOL 320 100 ML VIAL IVP ONE ×2 (16:37→17:18)
[2019-09-20 16:53] LABS: BILIRUBIN,URINE NEGATIVE (NEGATIVE); CLARITY,URINE CLEAR (CLEAR); GLUCOSE, URINE (UA) NEGATIVE (NEGATIVE); KETONES,URINE (UA) NEGATIVE (NEGATIVE); LEUKOCYTE ESTERASE, URINE TRACE (NEGATIVE); NITRITE,URINE NEGATIVE (NEGATIVE); OCCULT BLOOD,URINE LARGE (NEGATIVE); PROTEIN,URINE >=300 mg/dL (NEGATIVE); UROBILINOGEN,URINE 0.2 (NORMAL) E.U./dL (NORMAL)
[2019-09-20 17:01] LABS: BACTERIA,URINE None Seen /HPF (None Seen); EPITHELIAL CELLS,UR FEW Transitional /HPF (<= Few); RBC,URINE 0-5 /HPF (0-5); SQUAMOUS EPITHELIAL CELL,UR NONE SEEN (<= Few)
[2019-09-20] MEDS ORDERED: KETOROLAC 30 MG/ML VIAL IVP STA (17:24)
[2019-09-20 17:39] LABS: HCG,QUALITATIVE BLOOD NEGATIVE
--- NOTE | 2019-09-20 17:54 | CT Report ---
Reason: abd pain Procedure Date: 09/20/2019 Accession Number: [id number] / [id number] Procedure: CT - Abdomen/Pelvis W CPT Code: Final Report FULL RESULT: EXAM: CT ABDOMEN AND PELVIS EXAM DATE: 09/20/2019 05:17 PM. CLINICAL HISTORY: Nausea with vomiting and upper abdominal pain. COMPARISONS: None. TECHNIQUE: Routine helical CT imaging was performed through the abdomen and pelvis. IV contrast: 80 cc Optiray 320 IV. Enteric contrast: No. Reconstructions: Coronal and sagittal. In accordance with CT protocol optimization, one or more of the following dose reduction techniques were utilized for this exam: automated exposure control, adjustment of mA and/or KV based on patient size, or use of iterative reconstructive technique. FINDINGS: Lung Bases: Unremarkable. Liver: Normal. No masses. Gallbladder/Bile Ducts: Unremarkable. Spleen: Normal. Pancreas: Normal. Adrenal Glands: Normal. Kidneys: Normal. No masses or hydronephrosis. Peritoneal Cavity/Bowel: Normal. No free fluid, free air or adenopathy. No masses or acute inflammatory process. The appendix is well visualized and normal. Pelvic Organs: Normal. The bladder and visualized pelvic organs are within normal limits. Vasculature: No aneurysms or other significant abnormality. Bones: No significant abnormality. Other: None. IMPRESSION: Negative CT abdomen and pelvis. RADIA
[2019-09-20] MEDS ORDERED: POTASSIUM CHLORIDE 20 MEQ TABLET PO ONE (17:58)
[2019-09-20] MEDS ORDERED: cefTRIAXone 1 GM in SODIUM CHLORIDE 0.9% MINIBAG 100 ML IV STA (17:58)
[2019-09-20 18:13] VITALS: BP 168/90
== END 2019-09-20 18:49 | disposition home or self-care (01) ==
LOC: ED 15:22
DX: R10.10 Upper abdominal pain, unspecified (principal); N39.0 Urinary tract infection, site not specified; E87.6 Hypokalemia; F17.200 Nicotine dependence, unspecified, uncomplicated
CPT/HCPCS: 36415; 74177; 80053; 81001; 83690; 84703; 85025; 87086; 96361; 96365; 96367; 96375; 99284; 99285; A9270; J7040; Q9967; 81003

== ENCOUNTER 2020-07-04 10:12 | Emergency (ER) | payer OTHER ==
[2020-07-04 10:44] LABS: LYMPHOCYTES # (AUTO) 3.3 10^3/uL (1.5-3.5); RED CELL DISTRIBUTION WIDTH 12.7 % (12.0-15.0)
[2020-07-04 10:55] LABS: BASOPHILS # (AUTO) 0.1 10^3/uL (0.0-0.1); BASOPHILS % (AUTO) 0.3 %; EOSINOPHILS # (AUTO) 0.2 10^3/uL (0.0-0.7); EOSINOPHILS % (AUTO) 0.9 %; HCT - HEMATOCRIT 48.9 % (37.0-47.0); LYMPHOCYTES % (AUTO) 16.8 %; MEAN CORPUSCULAR HEMOGLOBIN 30.2 pg (27.0-31.0); MEAN CORPUSCULAR HGB CONC 34.8 g/dL (32.0-36.0); MEAN PLATELET VOLUME 8.3 fL (7.9-10.8); MONOCYTES # (AUTO) 1.3 10^3/uL (0.0-1.0); MONOCYTES % (AUTO) 6.4 %; NEUTROPHILS # (AUTO) 14.7 10^3/uL (1.5-6.6); PLT - PLATELET COUNT 530 10^3/uL (130-450); RED BLOOD COUNT 5.62 10^6/uL (4.20-5.40); WHITE BLOOD COUNT 19.5 x10^3/uL (4.8-10.8)
[2020-07-04 11:01] LABS: SLIDE REVIEW? Indicated
[2020-07-04 11:03] LABS: ALBUMIN 4.8 g/dL (3.2-5.5); ALBUMIN/GLOBULIN RATIO 1.2 (1.0-2.2); CALCIUM 9.5 mg/dL (8.5-10.3); CREATININE 0.9 mg/dL (0.4-1.0); POTASSIUM 3.3 mmol/L (3.5-5.0); TOTAL PROTEIN 8.9 g/dL (6.7-8.2)
[2020-07-04] MEDS ORDERED: ONDANSETRON 4 MG/2 ML VIAL IVP STA ×2 (11:16→12:50)
[2020-07-04] MEDS ORDERED: SODIUM CHLORIDE 0.9% 1,000 ML IV STA ×2 (11:16→12:50)
[2020-07-04 11:39] LABS: GLUCOSE, URINE (UA) NEGATIVE (NEGATIVE); KETONES,URINE (UA) 40 mg/dL (NEGATIVE); LEUKOCYTE ESTERASE, URINE TRACE (NEGATIVE); NITRITE,URINE NEGATIVE (NEGATIVE); OCCULT BLOOD,URINE LARGE (NEGATIVE); PROTEIN,URINE >=300 mg/dL (NEGATIVE); UROBILINOGEN,URINE 0.2 (NORMAL) E.U./dL (NORMAL)
[2020-07-04 11:49] LABS: PLATELET MORPHOLOGY NORMAL APPEARANCE (NORMAL)
[2020-07-04 11:50] LABS: PLATELET ESTIMATE, MANUAL INCREASED (>450,000) (NORMAL); RBC MORPHOLOGY (MULTIPLE) NORMAL APPEARANCE (NORMAL)
[2020-07-04 11:58] LABS: BILIRUBIN,URINE NEGATIVE (NEGATIVE); CLARITY,URINE CLOUDY (CLEAR); HCG UR QUAL NEGATIVE; ICTOTEST,URINE NEGATIVE
[2020-07-04 11:59] LABS: BACTERIA,URINE Many /HPF (None Seen); SQUAMOUS EPITHELIAL CELL,UR FEW Squamous (<= Few)
[2020-07-04] MEDS ORDERED: HYDROmorphone 1 MG/ML CARPUJECT IVP STA (12:50)
--- NOTE | 2020-07-04 12:54 | ED Physician Documentation ---
History of Present Illness - Stated complaint Stated Complaint: N/V - Chief complaint Chief Complaint: Abd Pain - History obtained from History obtained from: Patient - Additonal information Additional information: 40-year-old female presents the emergency department for evaluation of 2 to 3 days right upper quadrant abdominal pain uncontrolled vomiting and nausea. No previous surgical history. She denies any fevers cough. No diarrhea. Denies dysuria urgency or frequency. She did have a telehealth appointment this a.m. and they advised her to come to the ER for further evaluation. Review of Systems Constitutional: denies: Fever, Chills Eyes: reports: Reviewed and negative Ears: reports: Reviewed and negative Nose: reports: Reviewed and negative Throat: reports: Reviewed and negative Cardiac: reports: Reviewed and negative Respiratory: reports: Reviewed and negative GI: reports: Abdominal Pain, Nausea, Vomiting. denies: Diarrhea, Hematemesis, Bloody / black stool : denies: Dysuria, Frequency, Hesitancy Skin: reports: Reviewed and negative Musculoskeletal: reports: Reviewed and negative Neurologic: reports: Reviewed and negative PD PAST MEDICAL HISTORY - Past Medical History Cardiovascular: Hypertension Psych: Depression Musculoskeletal: Chronic back pain - Past Surgical History Past Surgical History: No - Present Medications Home Medications: Ambulatory Orders Medication Instructions Recorded Confirmed Escitalopram Oxalate [Lexapro] 20 mg PO DAILY 03/30/14 07/04/20 lisinopriL [Lisinopril] 10 mg PO DAILY 03/30/14 07/04/20 Ondansetron [Zuplenz] 8 mg PO PRN PRN 11/08/17 07/04/20 Promethazine [Phenergan] 25 - 50 mg PO Q6H PRN #10 tab 11/08/17 07/04/20 buPROPion [Wellbutrin Sr] 100 mg PO BID 11/08/17 07/04/20 Ondansetron Odt [Zofran] 4 mg TL Q6H PRN #15 tablet 11/10/17 07/04/20 Cephalexin [Keflex] 500 mg PO BID #14 capsule 07/04/20 Ondansetron Odt [Zofran] 4 mg TL Q6H PRN #10 tablet 07/04/20 - Allergies Allergies/Adverse Reactions: Allergies Allergy/AdvReac Type Severity Reaction Status Date / Time No Known Drug Allergies Allergy Verified 07/04/20 10:23 - Social History Does the pt smoke?: Yes Smoking Status: Current every day smoker Does the pt drink ETOH?: Yes Does the pt have substance abuse?: No - POLST Patient has POLST: No PD ED PE EXPANDED - General General: Alert, No acute distress, Well developed/nourished, Other (obese) - Cardiac Cardiac: Tachy, Radial strong equal, Pedal strong equal, Cap refill < 2 sec. No: Murmur Present - Respiratory Respiratory: Clear to ausultation sonu, Stridor. No: Distress, Labored - Abdomen Abdomen: Normal Bowel sounds, Tender to palpation, RUQ, Epigastric (Tenderness palpation right upper quadrant and epigastrium.) - Back Back: Normal exam. No: Vertebral tenderness, Soft tissue tenderness, CVA TTP right, CVA TTP left - Derm Derm: Normal color, Warm and dry. No: Rash - Extremities Extremities: Normal. No: Pedal edema bilateral, Right calf TTP/cord, Left calf TTP/cord - Neuro Neuro: Alert and Oriented X 3, CNII-XII intact Results - Vitals Vitals: Vital Signs - 24 hr 07/04/20 07/04/20 07/04/20 10:23 13:19 13:38 Temperature 37.3 C Heart Rate 118 H 107 H 101 H Respiratory 20 16 16 Rate Blood Pressure 179/114 H 148/107 H 148/95 H O2 Saturation 97 95 97 Oxygen O2 Source Room air - Labs Labs: Laboratory Tests 07/04/20 07/04/20 07/04/20 10:36 10:36 10:50 WBC 19.5 H RBC 5.62 H Hgb 17.0 H Hct 48.9 H MCV 87.0 MCH 30.2 MCHC 34.8 RDW 12.7 Plt Count 530 H MPV 8.3 Neut # (Auto) 14.7 H Lymph # (Auto) 3.3 Trigg # (Auto) 1.3 H Eos # (Auto) 0.2 Baso # (Auto) 0.1 Absolute Nucleated RBC 0.00 Nucleated RBC % 0.0 Manual Slide Review Indicated Platelet Estimate INCREASED (>450,000) Platelet Morphology NORMAL APPEARANCE RBC Morph Micro Appear NORMAL APPEARANCE Sodium 137 Potassium 3.3 L Chloride 98 L Carbon Dioxide 25 Anion Gap 14.0 H BUN 17 Creatinine 0.9 Estimated GFR (MDRD) 70 L Glucose 158 H Calcium 9.5 Total Bilirubin 1.0 AST 38 ALT 27 Alkaline Phosphatase 66 Total Protein 8.9 H Albumin 4.8 Globulin 4.1 Albumin/Globulin Ratio 1.2 Lipase 24 Urine Color DARK YELLOW Urine Clarity CLOUDY Urine pH 6.0 Ur Specific [place] >=1.030 H Urine Protein >=300 H Urine Glucose (UA) NEGATIVE Urine Ketones 40 H Urine Occult Blood LARGE H Urine Nitrite NEGATIVE Urine Bilirubin NEGATIVE Urine Urobilinogen 0.2 (NORMAL) Ur Leukocyte Esterase TRACE H Urine RBC 6-10 H Urine WBC 11-25 H Ur Squamous Epith Cells FEW Squamous Urine Bacteria Many H Ur Microscopic Review INDICATED Urine Culture Comments INDICATED Urine HCG, Qual NEGATIVE - Rads (name of study) CT abd/pelvis w Radiology: Final report received (No acute abnormality is identified. No free fluid. Mild diverticulosis without diverticulitis) ABD US Radiology: See rad report, Other (Per processing tech normal gallbladder without stones or sludge. Normal CBD. no obstruction No pericholecystic wall thickening or signs of cholecystitis) PD MEDICAL DECISION MAKING - ED course Complexity details: reviewed results, re-evaluated patient, considered differential, d/w patient ED course: 40-year-old female presents the emergency department for evaluation of 2 days upper abdominal pain with associated nausea and vomiting. No fevers. On screening labs we do note a marked leukocytosis. No significant LFT changes. Her urine does suggest infection with moderate amount of blood as well as WBCs and bacteria. However patient denies any dysuria urgency or frequency. CT of the abdomen showed no acute findings. Given tenderness in the RUQ as well as leukocytosis, US of abdomen completed. Again no findings c/w cholecystitis. Patient was given 1 L of IV fluid as well as Zofran and Dilaudid with marked improvement in pain and nausea. Now tolerating oral liquids. This plan we will plan to discharge her home. Given urinary findings will write a prescription for Keflex. Pt was given 1 gm of ceftriaxone in the ED. Culture is pending. She also be given a prescription for limited Zofran. Emergent return precautions discussed Departure - Departure Disposition: Home, Self Care Clinical Impression: Upper abdominal pain, Cystitis Nausea and vomiting Qualifiers: Vomiting type: unspecified Vomiting Intractability: non-intractable Qualified Code(s): R11.2 - Nausea with vomiting, unspecified Condition: Stable Record reviewed to determine appropriate education?: Yes Instructions: Abdominal Pain Follow-Up: [facility] [Provider Group] Prescriptions: Cephalexin [Keflex] 500 mg PO BID #14 capsule Ondansetron Odt [Zofran] 4 mg TL Q6H PRN #10 tablet PRN Reason: Nausea / Vomiting Comments: Alexandra you were seen in the ER today for upper abdominal pain and vomiting. The CT scan of your belly as well as the ultrasound did not show any findings worrisome for your gallbladder. You did have a white blood cell count elevation as we discussed. I am concerned that you may have a urinary tract infection though you lack symptoms. I would like you to fill the prescription for the cephalexin and begin taking tomorrow morning twice daily as directed. I have also written a limited prescription for Zofran to help with nausea and vomiting at home. At any point you find that your symptoms are worsening, you have fevers, suddenly severe or different abdominal pain please return immediately to the ER for a second look
[2020-07-04] MEDS ORDERED: IOVERSOL 320 100 ML VIAL IVP ONE ×2 (13:18→13:50)
--- NOTE | 2020-07-04 13:55 | CT Report ---
PROCEDURE: Abdomen/Pelvis W INDICATIONS: RUQ abd pain/vomiting CONTRAST: IV CONTRAST: Optiray 320 ml: 100 PO CONTRAST: *NO PO CONTRAST TECHNIQUE: After the administration of intravenous contrast, 5 mm thick sections acquired from the diaphragms to the symphysis. 5 mm thick coronal and sagittal reformats were acquired. For radiation dose reducti on, the following was used: automated exposure control, adjustment of mA and/or kV according to [place] ent size. COMPARISON: CT abdomen and pelvis 09/20/2019 FINDINGS: Image quality: Excellent. ABDOMEN: Lung bases: Lung bases are clear. Heart size is normal. Solid organs: Liver and spleen are normal in size and enhancement. Gallbladder is not significantly distended. No calcified gallstones. No pericholecystic fluid is identified. Biliary system is non d ilated. Pancreas enhances normally. No adrenal nodules. Kidneys demonstrate normal size and enhanc ement, without hydronephrosis. Peritoneum and bowel: Stomach is mostly decompressed. No small bowel obstructive. Diverticulosis with out diverticulitis. Normal appendix. No free fluid or air. Nodes and vessels: No retroperitoneal or mesenteric adenopathy by size criteria. Aorta and inferior vena cava are normal in size. Mild calcified arthroscopic plaque, early onset. Miscellaneous: Tiny fat-containing periumbilical hernia. PELVIS: Genitourinary: Bladder is unremarkable. Anteverted uterus. No free fluid. Miscellaneous: No inguinal hernias or adenopathy. Bones: No suspicious bony lesions. Mild DDD at L4-L5. No vertebral body compression fractures. IMPRESSION: No acute abnormality is identified. No free fluid. Mild diverticulosis without diverticulitis. Reviewed by: Benjy Tolentino MD on 07/04/2020 12:54 PM [facility] Approved by: Benjy Tolentino MD on 07/04/2020 12:54 PM [facility] Station ID: [id number]
[2020-07-04] MEDS ORDERED: cefTRIAXone 1 GM VIAL IVP STA (14:16)
--- NOTE | 2020-07-04 14:38 | Ultrasound Report ---
PROCEDURE: Abdomen Limited INDICATIONS: RUQ abd pain/vomiting TECHNIQUE: Real-time focused scanning was performed of the right upper quadrant abdomen, with image documentatio n. COMPARISON: CT of the abdomen and pelvis 07/04/2020 FINDINGS: There is diffuse moderate to severe hepatic steatosis. No focal hepatic mass identified. N o intrahepatic or extra hepatic biliary ductal dilatation. Gallbladder is unremarkable. Pancreas is n onvisualized. Right kidney is within normal limits. IMPRESSION: Moderate to severe hepatic steatosis. Reviewed by: Conrado Dyer MD on 07/04/2020 2:37 PM PST Approved by: Conrado Dyer MD on 07/04/2020 2:37 PM PST Station ID: [id number]
[2020-07-04 16:03] VITALS: BP 161/104
--- OUTSIDE RECORDS SUMMARY | 2020-07-12 00:11 | EXTERNAL MEDICAL SUMMARY RPT | Continuity of Care Document ---
:1980 Demographics Phone Unavailable Preferred Language Unknown Marital Status Unknown Faith Affiliation Unknown Race Unknown Ethnic Group Unknown Author Organization [facility] [address] [place] [address] Phone Support Name Relationship Address Phone NOT Unavailable Unavailable Unavailable Problems date description facility 2020-07-04 10:12 NICOTINE DEPENDENCE, UNSPECIFIED, [facility] UNCOMPLICATED 2020-07-04 10:12 ESSENTIAL (PRIMARY) HYPERTENSION [facility] 2020-07-04 10:12 DVRTCLOS OF INTEST, PART UNSP, W/O i [facility] PERF OR ABSCESS 2020-07-04 10:12 FATTY (CHANGE OF) LIVER, NOT [facility] ELSEWHERE CLASSIFIED 2020-07-04 10:12 CYSTITIS, UNSPECIFIED WITHOUT [facility] HEMATURIA 2020-07-04 10:12 RIGHT UPPER QUADRANT PAIN [facility] 2020-07-04 10:12 NAUSEA WITH VOMITING, UNSPECIFIED [facility] Allergies date description facility AMLODIPINE [facility] AMOXICILLIN [facility] CODEINE [facility] MEPERIDINE [facility] TRAZODONE [facility] NO KNOWN ENVIRONMENTAL ALLERGIES [facility] PENICILLINS [facility] STATINS [facility] NO KNOWN ALLERGIES [facility] No Known Drug Allergies [facility] Results Social History date description facility [phone]
== END 2020-07-04 16:06 | disposition home or self-care (01) ==
LOC: ED 10:12
DX: N30.90 Cystitis, unspecified without hematuria (principal); R10.11 Right upper quadrant pain; R11.2 Nausea with vomiting, unspecified; K76.0 Fatty (change of) liver, not elsewhere classified; K57.90 Diverticulosis of intestine, part unspecified, without perforation or abscess without bleeding; I10 Essential (primary) hypertension; F17.200 Nicotine dependence, unspecified, uncomplicated
CPT/HCPCS: 36415; 74177; 76705; 80053; 81001; 81025; 83690; 85025; 87077; 87086; 96361; 96374; 96375; 99283; 99284; J1170; Q9967; 81003

== ENCOUNTER 2022-05-31 08:00 | Outpatient (CLI) | payer OTHER ==
[2022-05-31 20:33] LABS: BILIRUBIN,URINE NEGATIVE (NEGATIVE); GLUCOSE, URINE (UA) NEGATIVE (NEGATIVE); KETONES,URINE (UA) NEGATIVE (NEGATIVE); LEUKOCYTE ESTERASE, URINE NEGATIVE (NEGATIVE); NITRITE,URINE NEGATIVE (NEGATIVE); OCCULT BLOOD,URINE SMALL (NEGATIVE); PROTEIN,URINE 30 mg/dL (NEGATIVE); UROBILINOGEN,URINE 0.2 (NORMAL) E.U./dL (NORMAL)
[2022-05-31 20:35] LABS: CLARITY,URINE CLEAR (CLEAR)
[2022-05-31 20:49] LABS: BACTERIA,URINE Rare /HPF (None Seen); SQUAMOUS EPITHELIAL CELL,UR RARE Squamous (<= Few); WBC,URINE 0-3 /HPF (0-5)
== END 2022-05-31 23:59 | disposition home or self-care (01) ==
LOC: LAB.S 08:00
PROVIDERS: ATTEND Physician Assistant Medical
DX: R10.9 Unspecified abdominal pain (principal)
CPT/HCPCS: 81001; 87086

== ENCOUNTER 2022-07-10 11:16 | Outpatient (CLI) | payer OTHER ==
[2022-07-10] MEDS ORDERED: DIATRIZOATE MEGLU/DIATRIZO SOD 30 ML BOTTLE PO ONE ×2 (11:26→14:57)
[2022-07-10] MEDS ORDERED: iohexoL-300 100 ML VIAL ONE (11:26)
[2022-07-10 11:34] LABS: CREATININE 0.9 mg/dL (0.4-1.0)
[2022-07-10 11:44] LABS: CALCIUM 9.6 mg/dL (8.5-10.3); POTASSIUM 4.1 mmol/L (3.5-5.0)
[2022-07-10] MEDS ORDERED: iohexoL-300 100 ML VIAL IVP ONE (14:57)
--- NOTE | 2022-07-10 15:17 | CT Report ---
PROCEDURE: ABDOMEN/PELVIS W INDICATIONS: LEFT LOWER QUAD PAIN CONTRAST: 100ml Omnipaque 300 TECHNIQUE: After the administration of oral and intravenous contrast, 5 mm thick sections acquired from the diap hragms to the symphysis. 5 mm thick coronal and sagittal reformats were acquired. For radiation dos e reduction, the following was used: automated exposure control, adjustment of mA and/or kV accordin g to patient size. COMPARISON: CT abdomen/pelvis 07/19/2020 FINDINGS: Image quality: Excellent. ABDOMEN: Lung bases: Lung bases are clear. Heart size is normal. Solid organs: Liver is hypoattenuating, most compatible with diffuse fatty infiltration. Liver is mil dly enlarged measuring 18.8 cm in craniocaudal dimension. Spleen is normal in size. Gallbladder is un remarkable. Biliary system is non dilated. Pancreas enhances normally. No adrenal nodules. Kidney s demonstrate normal size and enhancement, without hydronephrosis. Peritoneum and bowel: A few scattered diverticula are seen in the colon. No definite focal pericoloni c fat stranding to suggest acute diverticulitis. Small bowel loops are unremarkable. Normal appendix. No free fluid or air. Nodes and vessels: No retroperitoneal or mesenteric adenopathy by size criteria. Aorta and inferior vena cava are normal in size. Miscellaneous: Tiny fat-containing periumbilical hernia. PELVIS: Genitourinary: Bladder wall thickness is normal. Ovaries are symmetric in size. Uterus is unremarka ble. Miscellaneous: No inguinal hernias or adenopathy. Bones: No suspicious bony lesions. No vertebral body compression fractures. Degenerative changes a re seen in the sacroiliac joints bilaterally. Mild degenerative changes are seen in the lumbar spine. IMPRESSION: 1.Colonic diverticulosis without definite signs of acute diverticulitis. No acute abnormality is seen in the abdomen or pelvis. 2.Hepatic steatosis. Reviewed by: Erickson Vang MD on 07/10/2022 3:16 PM PST Approved by: Erickson Vang MD on 07/10/2022 3:16 PM PST Station ID: [id number]
== END 2022-07-10 11:17 | disposition home or self-care (01) ==
LOC: LAB 11:16
PROVIDERS: ATTEND Nurse Practitioner Family
DX: R10.32 Left lower quadrant pain (principal); K57.30 Diverticulosis of large intestine without perforation or abscess without bleeding; K76.0 Fatty (change of) liver, not elsewhere classified
CPT/HCPCS: 36415; 74177; 80048; Q9963; Q9967

== ENCOUNTER 2022-07-22 14:04 | Outpatient (CLI) | payer OTHER ==
--- NOTE | 2022-07-23 15:37 | Mammography Report ---
BILATERAL FIRST EVER DIGITAL SCREENING MAMMOGRAM 3D/2D WITH CLEAVAGE: 07/22/2022 CLINICAL: Routine screening. Baseline exam. No prior exams were available for comparison. There are scattered areas of fibroglandular density in both breasts (category b / 25%-50% glandular t issue). No significant masses, calcifications, or other findings are seen in either breast. IMPRESSION: NEGATIVE There is no mammographic evidence of malignancy. A 1 year screening mammogram is recommended. Based on the Tyrer Cuzick model (a risk assessment model) the patients lifetime risk is 10.3% and he r 10 year risk is 1.4%. According to the ACR, ACS, and NCCN guidelines, an annual breast MRI exam stacey ng with mammogram is recommended if the patients lifetime risk is 20% or greater. This exam was interpreted at Station ID: [id number]. NOTE: For mammograms, a report in lay terms will be sent to the patient. Approximately 15% of breast malignancies will not be visualized mammographically. In the management of a palpable breast mass, a negative mammogram must not discourage biopsy of a clinically suspicious lesion. Electronically Signed By: Conner Nino M.D. [email or web address]:07/22/2022 17:33:20 ACR BI-RADS Category 1: Negative 3341F PARENCHYMAL PATTERN: (A) - The breast(s) demonstrate(s) scattered fibroglandular densities. BI-RADS CATEGORY: (1) - 1 RECOMMENDATION: (ANNUAL) - Recommend routine annual screening mammography. [id number] 1 year screening LATERALITY: (B)
== END 2022-07-22 14:05 | disposition home or self-care (01) ==
LOC: DI.S 14:04
PROVIDERS: ATTEND Nurse Practitioner Family
DX: Z12.31 Encounter for screening mammogram for malignant neoplasm of breast (principal)